=== PATIENT | female | born 1970 | race Caucasian/White ===

== ENCOUNTER → 2016-03-24 | Outpatient (CLI) | payer OTHER | LOC: WI 10:59 | PROVIDERS: ATTEND Nurse Practitioner Family | DX: Z12.31 Encounter for screening mammogram for malignant neoplasm of breast (principal) | CPT/HCPCS: 77067; G0202 ==

== ENCOUNTER 2017-12-28 17:06 | Observation (INO) | payer OTHER ==
--- NOTE | 2017-12-28 17:56 | ER Document Report ---
ED Medical Screen (RME) - General Chief Complaint: Chest Pain Stated Complaint: CHEST PAIN Time Seen by Provider: 12/28/17 17:55 Notes: 47-year-old female to the emergency department for evaluation of chest pain. Came on at rest. On the left side of her chest. [place] short of breath. Also stay thereafter rest. Went to the [place] [facility] and they sent her here. Ambulance brought patient to the ER. Received aspirin and nitro and chest pain subsided. I have greeted and performed a rapid initial assessment of this patient. A comprehensive ED assessment and evaluation of the patient, analysis of test results and completion of the medical decision making process will be conducted by additional ED providers. TRAVEL OUTSIDE OF THE [place] IN LAST 30 DAYS: No - Related Data Allergies/Adverse Reactions: No Known Allergies Allergy (Unverified 12/28/17 17:10) Past Medical History - Social History Chew tobacco use (# tins/day): No Frequency of alcohol use: Heavy Drug Abuse: None - Past Medical History Cardiac Medical History: Reports: Hx Hypertension Renal/ Medical History: Denies: Hx Peritoneal Dialysis Past Surgical History: Reports: Hx Tubal Ligation Physical Exam - Vital signs Vitals: Temp Pulse Resp BP Pulse Ox 98.4 F 84 16 148/82 H 98 12/28/17 17:16 12/28/17 17:16 12/28/17 17:16 12/28/17 17:16 12/28/17 17:16 Course - Vital Signs Vital signs: Temp Pulse Resp BP Pulse Ox 98.4 F 84 16 148/82 H 98 12/28/17 17:16 12/28/17 17:16 12/28/17 17:16 12/28/17 17:16 12/28/17 17:16 Doctor's Discharge - Discharge Referrals: DANYEL GUADALUPE FNP [Primary Care Provider] - Follow up as needed
[2017-12-28 18:09] LABS: HEMATOCRIT 31.9 % (36.0-47.0); HEMOGLOBIN 9.6 g/dL (12.0-15.5); MEAN CORPUSCULAR HEMOGLOBIN 19.2 pg (27.0-33.4); MEAN CORPUSCULAR HGB CONC 30.2 g/dL (32.0-36.0); PLATELET COUNT 223 10^3/uL (150-450); RED CELL DISTRIBUTION WIDTH 19.1 % (11.5-14.0); WHITE BLOOD COUNT 6.3 10^3/uL (4.0-10.5)
[2017-12-28 18:10] LABS: ALANINE AMINOTRANSFERASE 18 U/L (9-52); ALBUMIN 4.7 g/dL (3.5-5.0); ALKALINE PHOSPHATASE 66 U/L (38-126); ANION GAP 11 (5-19); ASPARTATE AMINO TRANSFERASE 28 U/L (14-36); BILIRUBIN,DIRECT 0.3 mg/dL (0.0-0.4); BILIRUBIN,TOTAL 0.6 mg/dL (0.2-1.3); BLOOD UREA NITROGEN 15 mg/dL (7-20); CALCIUM 9.5 mg/dL (8.4-10.2); CARBON DIOXIDE 26 mmol/L (22-30); CHLORIDE 104 mmol/L (98-107); CREATINE KINASE 64 U/L (30-135); GLUCOSE 87 mg/dL (75-110); POTASSIUM 4.2 mmol/L (3.6-5.0); TOTAL PROTEIN 8.4 g/dL (6.3-8.2)
[2017-12-28 18:11] LABS: APPEARANCE,URINE CLEAR; BILIRUBIN,URINE NEGATIVE (NEGATIVE); COLOR,URINE COLORLESS; GLUCOSE, URINE NEGATIVE (NEGATIVE); KETONES,URINE NEGATIVE (NEGATIVE); LEUKOCYTE ESTERASE,URINE NEGATIVE (NEGATIVE); NITRITE,URINE NEGATIVE (NEGATIVE); PROTEIN,URINE NEGATIVE (NEGATIVE); URINE SPECIFIC GRAVITY 1.005; UROBILINOGEN,URINE NEGATIVE mg/dL (<2.0)
[2017-12-28 18:12] LABS: MEAN CORPUSCULAR VOLUME 64 fl (80-97)
--- NOTE | 2017-12-28 18:22 | RADIOLOGY REPORT (SQ) ---
EXAM DESCRIPTION: CHEST 2 VIEWS COMPLETED DATE/TIME: 12/28/2017 6:16 pm REASON FOR STUDY: chest pain COMPARISON: None. EXAM PARAMETERS: NUMBER OF VIEWS: two views TECHNIQUE: Digital Frontal and Lateral radiographic views of the chest acquired. RADIATION DOSE: NA LIMITATIONS: none FINDINGS: LUNGS AND PLEURA: No opacities, masses or pneumothorax. No pleural effusion. MEDIASTINUM AND HILAR STRUCTURES: No masses or contour abnormalities. HEART AND VASCULAR STRUCTURES: Heart normal size. No evidence for failure. BONES: No acute findings. HARDWARE: None in the chest. OTHER: No other significant finding. IMPRESSION: NO ACUTE RADIOGRAPHIC FINDING IN THE CHEST. TECHNICAL DOCUMENTATION: JOB ID: [id number] [facility]- All Rights Reserved Reading location - IP/workstation name: [email or web address]
[2017-12-28 18:27] LABS: ABSOLUTE LYMPHOCYTES# (MANUAL) 1.8 10^3/uL (0.5-4.7); ABSOLUTE MONOCYTES # (MANUAL) 0.4 10^3/uL (0.1-1.4); BASOPHILS % (MANUAL) 0 % (0-2); EOSINOPHILS % (MANUAL) 2 % (0-6); LYMPHOCYTES % (MANUAL) 25 % (13-45); MONOCYTES % (MANUAL) 7 % (3-13); SEGMENTED NEUTROPHILS % (MAN) 63 % (42-78); TOTAL CELLS COUNTED 100
[2017-12-28 18:29] LABS: ANISOCYTOSIS 2+; HYPOCHROMASIA 2+; POLYCHROMASIA SLIGHT
[2017-12-28 18:30] LABS: PLATELET COMMENT ADEQUATE
[2017-12-28 18:39] LABS: CREATINE KINASE MB 0.53 ng/mL (<4.55)
[2017-12-28 18:40] LABS: TROPONIN I < 0.012 ng/mL
[2017-12-28] MEDS: NITROGLYCERIN 0.4 MG/TAB 25 TAB/BOTTLE SL PRN ×2 (19:33→19:46)
[2017-12-28] MEDS ORDERED: PROMETHAZINE HCL 25 MG TABLET PO PRN (19:41)
[2017-12-28] MEDS ORDERED: PROMETHAZINE HCL INJ 25 MG/1 ML VIAL IV PRN (19:41)
[2017-12-28] MEDS ORDERED: TEMAZEPAM 7.5 MG CAPSULE PO PRN (19:41)
[2017-12-28] MEDS ORDERED: ACETAMINOPHEN 325 MG TABLET PO PRN (19:41)
[2017-12-28] MEDS ORDERED: MAG HYDROX/AL HYDROX/SIMETH SUSP 30 ML UDCUP PO PRN (19:41)
--- NOTE | 2017-12-28 19:48 | ER Document Report ---
ED General - General Chief Complaint: Chest Pain Stated Complaint: CHEST PAIN Time Seen by Provider: 12/28/17 17:55 Notes: Patient is a 47-year old female with a past medical history of hypertension, tobacco abuse, who presents with chest pain rating into her left upper extremity. Patient reports that this occurred while driving, lasted for approximately 1 hour and was described mostly as a sensation of pressure or heaviness in her left chest. He states the symptoms resolved after receiving nitroglycerin by EMS but have again recurred here in the emergency department. Nothing seems to trigger her worsening symptoms. No history of similar symptoms in the past. Denies any known cardiac history. She notes that she had some mild associated shortness of breath but denies any pleuritic pain. No use of estrogen. No history of DVT or pulmonary embolus. No syncope. She was seen at the [place] and referred to the emergency department for further assessment. She has never had a stress test or cardiac catheterization. TRAVEL OUTSIDE OF THE [place] IN LAST 30 DAYS: No - Related Data Allergies/Adverse Reactions: No Known Allergies Allergy (Unverified 12/28/17 17:10) Past Medical History - General Information source: Patient - Social History Smoking Status: Current Every Day Smoker Cigarette use (# per day): Yes - 1 pack/day Chew tobacco use (# tins/day): No Smoking Education Provided: Yes - Smoking cessation counseling was provided for 4 minutes at the bedside Frequency of alcohol use: Heavy Drug Abuse: None Lives with: Spouse/Significant other Family History: Reviewed & Not Pertinent Patient has suicidal ideation: No Patient has homicidal ideation: No - Past Medical History Cardiac Medical History: Reports: Hx Hypertension Renal/ Medical History: Denies: Hx Peritoneal Dialysis Past Surgical History: Reports: Hx Tubal Ligation Review of Systems - Review of Systems Notes: Constitutional: Negative for fever. HENT: Negative for sore throat. Eyes: Negative for visual changes. Cardiovascular: Positive for chest pain. Respiratory: Positive for shortness of breath. Gastrointestinal: Negative for abdominal pain, vomiting or diarrhea. Genitourinary: Negative for dysuria. Musculoskeletal: Negative for back pain. Skin: Negative for rash. Neurological: Negative for headaches, weakness or numbness. 10 point ROS negative except as marked above and in HPI. Physical Exam - Vital signs Vitals: Temp Pulse Resp BP Pulse Ox 98.4 F 84 16 148/82 H 98 12/28/17 17:16 12/28/17 17:16 12/28/17 17:16 12/28/17 17:16 12/28/17 17:16 Interpretation: Normal Notes: PHYSICAL EXAMINATION: GENERAL: Well-appearing, well-nourished and in no acute distress. HEAD: Atraumatic, normocephalic. EYES: Pupils equal round and reactive to light, extraocular movements intact, sclera anicteric, conjunctiva are normal. ENT: nares patent, oropharynx clear without exudates. Moist mucous membranes. NECK: Normal range of motion, supple without lymphadenopathy LUNGS: Breath sounds clear to auscultation bilaterally and equal. No wheezes rales or rhonchi. HEART: Regular rate and rhythm without murmurs ABDOMEN: Soft, nontender, normoactive bowel sounds. No guarding, no rebound. No masses appreciated. EXTREMITIES: Normal range of motion, no pitting or edema. No cyanosis. NEUROLOGICAL: No focal neurological deficits. Moves all extremities spontaneously and on command. PSYCH: Normal mood, normal affect. SKIN: Warm, Dry, normal turgor, no rashes or lesions noted. Course - Re-evaluation Re-evalutation: 12/28/17 19:53 Patient presents with a clinical history moderately suspicious for the source of her chest discomfort being from ACS. She does have multiple risk factors including a long-standing tobacco abuse disorder, hypertension, and a strong family history of cardiac disease. She also reports that each time she exercises she developed chest pressure and shortness of breath and that this is been ongoing for at least one year. She did have recurrence of chest pain here in the emergency room and all of which have repeatedly resolved with nitroglycerin. She has never had a cardiac catheterization or stress test. Given her clinical history, heart score of 4, I discussed with the hospitalist for admission for cardiac stress testing and Dr. Benito has agreed - Vital Signs Vital signs: Temp Pulse Resp BP Pulse Ox 98.5 F 71 18 140/78 H 100 12/28/17 21:19 12/28/17 21:19 12/28/17 21:19 12/28/17 21:19 12/28/17 21:19 - Laboratory Result Diagrams: 12/28/17 16:30 12/28/17 16:30 Laboratory results interpreted by me: 1112/28/17 12/28/17 16:30 16:30 16:30 Hgb 9.6 L Hct 31.9 L MCV 64 L MCH 19.2 L MCHC 30.2 L RDW 19.1 H Iron 11.9 L TIBC 490 H Ferritin 4.56 L Total Protein 8.4 H Urine Blood 12/28/17 17:00 Hgb Hct MCV MCH MCHC RDW Iron TIBC Ferritin Total Protein Urine Blood SMALL H - Diagnostic Test Radiology reviewed: Image reviewed, Reports reviewed Radiology results interpreted by me: 12/28/17 19:54 Chest x-ray: No acute infiltrate or pneumothorax - EKG Interpretation by Me Additional EKG results interpreted by me: 12/28/17 19:54 Sinus rhythm. Rate 96. No ST elevations or depressions. QTC is 465. Discharge - Discharge Clinical Impression: Chest pain Qualifiers: Chest pain type: unspecified Qualified Code(s): R07.9 - Chest pain, unspecified Condition: Fair Disposition: ADMITTED OBSERVATION Admitting Provider: Hospitalist Unit Admitted: Telemetry
[2017-12-28] MEDS ORDERED: MORPHINE SULFATE 10 MG/ML INJ IV PRN (19:52)
[2017-12-28 21:29] LABS: URINE AMPHETAMINES SCREEN NEGATIVE; URINE BARBITURATES SCREEN NEGATIVE; URINE BENZODIAZEPINES SCREEN NEGATIVE; URINE COCAINE SCREEN NEGATIVE; URINE MARIJUANA (THC) SCREEN NEGATIVE; URINE METHADONE SCREEN NEGATIVE; URINE PHENCYCLIDINE SCREEN NEGATIVE
--- NOTE | 2017-12-28 22:13 | PDOC H&P ---
History of Present Illness Admission Date/PCP: 12/28/17 20:04 KURTIS WHITE Patient complains of: Chest pain History of Present Illness: JACINTO FORDE is a 47 year old female with medical history remarkable for hypertension, anxiety and PTSD. Patient tells me that around 1:40 PM she was driving from her work to her mom's house and suddenly it started with chest pressure on the left side of her chest radiated to the arm. Left arm and 3 middle fingers that were tingling, she felt the pain 8/10 intensity that lasted around 30 minutes and stopped spontaneously. Was associated with mild shortness of breath. Denies nausea, vomiting, dizziness, diaphoresis. She felt really low in energy very weak. Denies any similar symptoms in the past, denies having any stress test in the past. Denies following with any blood bank order control clerk. Tells me that this is different to her anxiety attacks and is different than when she has acid reflux. Tells me that she has chest tightness since she is a teenager, usually starts 5 minutes after initiation of exertion and lasted all the way up to 30 or 40 minutes that she decides to stop exercising and the tightness goes away, at some point he has been told that this is asthma induced by exercise. EKG is unremarkable, first set of troponins negative. Past Medical History Cardiac Medical History: Reports: Hypertension Psychiatric Medical History: Reports: General Anxiety Disorder, Post Traumatic Stress Disorder Past Surgical History Past Surgical History: Reports: Tubal Ligation, Other - Right arm benign tumor Social History Information Source: Patient Smoking Status: Current Every Day Smoker - 6-10 cigarettes a day Frequency of Alcohol Use: Occasional Hx Recreational Drug Use: No Hx Prescription Drug Abuse: No Past Social History Note: Lives with her who is at the bedside and 2 children - Advance Directive Resuscitation Status: Full Code Family History Family History: Mother 62 years old alive with a spine problems and hypertension, father is 66 years old with history of hypertension angioplasty she does not know where. One brother she does not know everything about him. Parental Family History Reviewed: Yes - As above Children Family History Reviewed: NA Sibling(s) Family History Reviewed.: NA Medication/Allergy Home Medications: Escitalopram Oxalate [Lexapro] 20 mg PO DAILY 12/28/17 Lisinopril/Hydrochlorothiazide [Lisinopril-Hctz 10-12.5 mg Tab] 1 each PO DAILY 12/28/17 Allergies/Adverse Reactions: No Known Allergies Allergy (Unverified 12/28/17 17:10) Review of Systems Review of Systems: As outlined in the HPI, all others negative Physical Exam Vital Signs: Temp Pulse Resp BP Pulse Ox 98.5 F 71 18 140/78 H 100 12/28/17 21:19 12/28/17 21:19 12/28/17 21:19 12/28/17 21:19 12/28/17 21:19 Intake & Output 12/27/17 12/28/17 12/29/17 06:59 06:59 06:59 Weight 88.5 kg Additional comments: General appearance: Well-developed, well-nourished, alert and cooperative, and appears to be in no acute distress Head: Normocephalic Eyes: PEERL, EOMI, vision is grossly intact. Ears: External auditory canal and tympanic membranes clear, hearing grossly intact. Nose: No nasal discharge. Throat: Oral cavity and pharynx normal. No inflammation, swelling, exudate or lesions. Neck: Neck supple, nontender without lymphadenopathy, masses or thyromegaly. Cardiac: Normal S1 and S2. No S3, S4 or murmurs. Rhythm is regular. There is no peripheral edema, cyanosis or pallor. Extremities are warm and well perfused. Capillary refill is less than 2 seconds. No carotid bruits. Thorax : No reproducible tenderness to palpation. Lungs: Clear to auscultation and percussion without rales, rhonchi, wheezing or diminished breath sounds. Not using accessory muscles. Abdomen: Positive bowel sounds. Soft. Nondistended, nontender. No guarding or rebound. No masses. No hepatosplenomegaly Extremities: No significant deformity or joint abnormality. No edema. Peripheral pulses intact. No varicosities. Neurological: Cranial nerves II through XII grossly intact. Strength and sensation symmetric and intact throughout. Reflexes 2+ throughout. Skin: Skin normal color, texture and turgor with no lesions or eruptions, warm and dry. Psychiatric: The mental examination revealed the patient was oriented to person , place, and time. The patient was able to demonstrate good judgment on recent , without hallucinations, abnormal affect or abnormal behaviors. Results Laboratory Results: 12/28/17 12/28/17 12/28/17 16:30 16:30 16:30 WBC 6.3 RBC 5.00 Hgb 9.6 L Hct 31.9 L MCV 64 L MCH 19.2 L MCHC 30.2 L RDW 19.1 H Plt Count 223 Total Counted 100 Seg Neuts % (Manual) 63 Lymphocytes % (Manual) 25 Atypical Lymphs % 3 Monocytes % (Manual) 7 Eosinophils % (Manual) 2 Basophils % (Manual) 0 Abs Neuts (Manual) 4.0 Abs Lymphs (Manual) 1.8 Abs Monocytes (Manual) 0.4 Absolute Eos (Manual) 0.1 Abs Basophils (Manual) 0.0 Platelet Comment ADEQUATE Polychromasia SLIGHT Hypochromasia 2+ Anisocytosis 2+ Sodium 141.0 Potassium 4.2 Chloride 104 Carbon Dioxide 26 Anion Gap 11 BUN 15 Creatinine 0.76 Est GFR ( Amer) > 60 Est GFR (Non-Af Amer) > 60 Glucose 87 Calcium 9.5 Total Bilirubin 0.6 Direct Bilirubin 0.3 AST 28 ALT 18 Alkaline Phosphatase 66 Creatine Kinase 64 CK-MB (CK-2) 0.53 Troponin I < 0.012 Total Protein 8.4 H Albumin 4.7 Urine Color Urine Appearance Urine pH Ur Specific [place] Urine Protein Urine Glucose (UA) Urine Ketones Urine Blood Urine Nitrite Urine Bilirubin Urine Urobilinogen Ur Leukocyte Esterase Urine RBC (Auto) Squamous Epi Cells Auto Urine Mucus (Auto) Urine Ascorbic Acid Urine Opiates Screen Urine Methadone Screen Ur Barbiturates Screen Ur Phencyclidine Scrn Ur Amphetamines Screen U Benzodiazepines Scrn Urine Cocaine Screen U Marijuana (THC) Screen 12/28/17 12/28/17 12/28/17 17:00 17:00 19:30 WBC RBC Hgb Hct MCV MCH MCHC RDW Plt Count Total Counted Seg Neuts % (Manual) Lymphocytes % (Manual) Atypical Lymphs % Monocytes % (Manual) Eosinophils % (Manual) Basophils % (Manual) Abs Neuts (Manual) Abs Lymphs (Manual) Abs Monocytes (Manual) Absolute Eos (Manual) Abs Basophils (Manual) Platelet Comment Polychromasia Hypochromasia Anisocytosis Sodium Potassium Chloride Carbon Dioxide Anion Gap BUN Creatinine Est GFR ( Amer) Est GFR (Non-Af Amer) Glucose Calcium Total Bilirubin Direct Bilirubin AST ALT Alkaline Phosphatase Creatine Kinase CK-MB (CK-2) Troponin I < 0.012 Total Protein Albumin Urine Color COLORLESS Urine Appearance CLEAR Urine pH 6.0 Ur Specific [place] 1.005 Urine Protein NEGATIVE Urine Glucose (UA) NEGATIVE Urine Ketones NEGATIVE Urine Blood SMALL H Urine Nitrite NEGATIVE Urine Bilirubin NEGATIVE Urine Urobilinogen NEGATIVE Ur Leukocyte Esterase NEGATIVE Urine RBC (Auto) 0 Squamous Epi Cells Auto 1 Urine Mucus (Auto) RARE Urine Ascorbic Acid NEGATIVE Urine Opiates Screen NEGATIVE Urine Methadone Screen NEGATIVE Ur Barbiturates Screen NEGATIVE Ur Phencyclidine Scrn NEGATIVE Ur Amphetamines Screen NEGATIVE U Benzodiazepines Scrn NEGATIVE Urine Cocaine Screen NEGATIVE U Marijuana (THC) Screen NEGATIVE Impressions: Chest X-Ray 12/28/17 00:00 IMPRESSION: NO ACUTE RADIOGRAPHIC FINDING IN THE CHEST. Assessment & Plan - Diagnosis (1) Chest pain Qualifiers: Chest pain type: unspecified Qualified Code(s): R07.9 - Chest pain, unspecified Is this a current diagnosis for this admission?: Yes Plan: Patient comes complaining of chest pain with typical and atypical symptomatology , never had a stress test in the past. We will go ahead and give the patient for a treadmill stress test. Telemetry monitoring. Cardiac enzymes total of x3 , so far to negative with unremarkable EKG. (2) Anxiety Is this a current diagnosis for this admission?: Yes Plan: Anxiety and PTSD on escitalopram (3) Hypertension Qualifiers: Hypertension type: essential hypertension Qualified Code(s): I10 - Essential (primary) hypertension Is this a current diagnosis for this admission?: Yes Plan: Continue with her lisinopril and HCTZ. (4) DVT prophylaxis Is this a current diagnosis for this admission?: Yes Plan: Lovenox (5) Anemia Is this a current diagnosis for this admission?: Yes Plan: Unknown if is acute on chronic, hemoglobin is 9.6 and hematocrit 31, will send anemia workup. - Time Time Spent: 50 to 70 Minutes
[2017-12-28 22:38] LABS: ABSOLUTE RETICS # 0.113 10^6/uL (0.028-0.122); RETICULOCYTE COUNT (AUTO) 2.32 % (0.66-2.85)
[2017-12-28 22:45] LABS: IRON(TIBC) 11.9 ug/dL (37-170)
[2017-12-28 23:23] LABS: FERRITIN 4.56 ng/mL (6.2-137.0)
[2017-12-28 23:53] LABS: FOLATE 4.31 ng/mL (>2.76)
--- NOTE | 2017-12-29 00:19 | EKG REPORT ---
SEVERITY:- BORDERLINE ECG - SINUS RHYTHM PROBABLE LEFT ATRIAL ABNORMALITY BORDERLINE LEFT AXIS DEVIATION : Confirmed by: Willard Ro 29-Dec-2017 00:18:28
[2017-12-29 05:31] LABS: CHOLESTEROL 162.02 mg/dL (0-200); TRIGLYCERIDES 76 mg/dL (<150)
[2017-12-29 05:42] LABS: DIRECT LDL 98 mg/dL (<100)
[2017-12-29 09:41] VITALS: BP 120/82
[2017-12-29] MEDS ORDERED: ESCITALOPRAM OXALATE 10 MG TABLET PO SCH (10:00)
[2017-12-29] MEDS ORDERED: ENOXAPARIN SODIUM INJ 40 MG/0.4 ML DISP.SYRIN SUBCUT SCH (10:00)
[2017-12-29] MEDS ORDERED: LISINOPRIL 10 MG TABLET PO SCH (10:00)
[2017-12-29] MEDS ORDERED: HYDROCHLOROTHIAZIDE 12.5 MG TABLET PO SCH (10:00)
--- NOTE | 2017-12-30 12:56 | DISCHARGE SUMMARY E ---
Discharge Summary NAME: JACINTO FORDE : 1970 AGE: 47Y ADMITTED: 12/28/2017 Discharged: 12/29/2017 CODE STATUS: Full code. PRIMARY CARE PROVIDER: KURTIS Pack. DISCHARGE DIAGNOSES: 1. Chest pain. 2. Iron deficiency anemia, possibly related to menorrhagia. 3. Significant general anxiety disorder with panic at times. 4. Hypertension. 5. Post-traumatic stress disorder. DISCHARGE MEDICATIONS: 1. Lexapro 20 mg p.o. daily. 2. Lisinopril/hydrochlorothiazide 10/12.5 mg 1 tablet p.o. daily. ACTIVITY: As tolerated. DIET: Heart healthy, iron rich. CONDITION: Good. DIAGNOSTICS: Lab values are as follows - Hematology obtained on 12/28/2017; WBC 6.3, hemoglobin is 9.6, hematocrit is 31.9, platelet count is 226,000. Chemistry obtained on 12/29/2017; sodium is 141, potassium 4.2, chloride 104, carbon dioxide 26, BUN 11, creatinine is 0.76, glucose 87, A1c is 5, calcium is 9.5, magnesium 2.0. Iron is 11.9, TIBC is 490, percent saturation is 2, ferritin is 4.56, bilirubin is 0.6, AST 28, ALT 18, alk-phos 56. CK is 64, CK-MB is 0.53, troponin is 0.012. Total protein 8.4, albumin 4.7. Triglycerides are 76, cholesterol 162, LDL 98, VLDL is 15, HDL is 65. B12 is 300, folate is 431. Toxicology obtained on 12/28/2017 is negative. Urinalysis obtained on 12/28/2017; color appearance clear, pH 6.0, specific gravity is 1.005, protein negative, glucose negative, ketones negative, occult blood small, nitrite negative, BILI negative, urobilinogen is negative, leukocyte esterase is negative, RBC 0. Chest x-ray obtained on 12/28/2017 reveals no acute radiographic finding of the chest. EKG obtained on 12/29/2017 revealed sinus rhythm. PHYSICAL EXAMINATION: GENERAL: On examination the patient is a well-developed, well-nourished, 47-year-old who is awake, alert, and oriented to person, place, time, and situation. She is verbal, conversational. She does not appear to be distressed. VITAL SIGNS: Temperature is 98.2, pulse 73, respirations 19, blood pressure is 120/82, oxygen saturation is 100% on room air. SKIN: Warm and dry. No rash. She is not diaphoretic. HEENT: Pupils equal, round, reactive to light and accommodation. Conjunctivae pink. No evidence of JVP. CARDIOVASCULAR SYSTEM: Heart is regular. There is no murmur or rub. CHEST: Clear, symmetrical, unlabored. ABDOMEN: Soft, nontender, nondistended. BACK: No CVA tenderness, sacral edema. EXTREMITIES: No clubbing, cyanosis, or edema. PSYCHIATRIC: Appropriate affect and pleasant mood. HISTORY OF PRESENT ILLNESS: The patient is a 47-year-old female with a past medical history that includes hypertension and anxiety. The patient presented to the emergency department with a chief complaint of chest pain. The patient stated that her pain began around 140 when she was driving home from work. The patient stated that she had chest pressure on the left side, which radiated to her arm, and also stated the 3 middle fingers that were tingling. The pain described the pain as an 8 out of 10 in intensity and it lasted around 30 minutes and stopped spontaneously. It was associated with mild shortness of breath. The patient denies any nausea, vomiting, diarrhea. No diaphoresis. The patient felt as though she was very weak. The patient denied any symptoms in the past. Has not had a stress test and has not seen a mud trucker. The patient stated that she does have anxiety attacks as well as acid reflux, but this felt different. The patient stated that she has had chest tightness since she was a teenager, which usually starts 5 minutes before the initiation of exertion and lasts all the way up to 30 or 40 minutes after she stops exercising and then it goes away. The patient has been told that she had restrictive lung disease at some point in time that could be induced by exercise. The patient's EKG was unremarkable, troponins negative, but she was referred to the hospitalist for admission and management. HOSPITAL COURSE: The patient was admitted to continuous telemetry and serial cardiac enzymes were obtained, all of these were nonsuggestive. The patient's EKG did not have any worrisome findings. The patient had no evidence on the media monitor. Lipid panel was found to be unremarkable. The only thing out of character on the patient's chemistries revealed that she does have an iron deficiency anemia which the patient appears to have some element of menorrhagia. The patient will be supplemented iron and encouraged to eat an iron rich diet and will followup with her primary care provider. The patient will also follow up with her primary care provider to schedule outpatient cardiac stress test and the patient and the family are in agreeance with this plan. DISCHARGE PLAN: 1. The patient advised to follow up with her primary care provider within 1 to 2 weeks for hospital followup. 2. The patient does need outpatient stress test. TIME SPENT: On this discharge including assessment and plan, physical examination, patient education, review of records is 25 minutes. DICTATING PHYSICIAN: ARMAND SKELTON NP [id number] PHY#: [id number] ID: [id number] JOB#: [id number] ACCT: [id number] cc:IMELDA MIGUEL M.D. > MTDJose
[2017-12-31 16:04] LABS: PATH REVIEW PATHOLOGIST REVIEWED
== END 2017-12-29 10:50 | disposition home or self-care (01) ==
LOC: ER 17:06 → EH 20:04 → 5 21:07
PROVIDERS: ADMIT Internal Medicine; ATTEND Internal Medicine
PROC: HZ31ZZZ Individual Counseling for Substance Abuse Treatment, Behavioral (ICD-10-PCS; principal; 2017-12-28)
DX: R07.89 Other chest pain (principal); D50.9 Iron deficiency anemia, unspecified; F41.1 Generalized anxiety disorder; F41.0 Panic disorder [episodic paroxysmal anxiety]; I10 Essential (primary) hypertension; F43.10 Post-traumatic stress disorder, unspecified; F17.210 Nicotine dependence, cigarettes, uncomplicated; R20.2 Paresthesia of skin; Z98.51 Tubal ligation status; Z82.49 Family history of ischemic heart disease and other diseases of the circulatory system; Z79.899 Other long term (current) drug therapy
CPT/HCPCS: 93005; 99406; 99285; 36415 ×2; 82553; 82607; 82550; 82728; 82746; 83540; 83550; 83735; 85025; 85045; 80053; 81001; 84484 ×2; 80307; 83036; 80061; 71046; 93010; G0378 ×3

== ENCOUNTER 2020-01-27 08:49 | Emergency (ER) | payer OTHER ==
--- NOTE | 2020-01-27 10:19 | RADIOLOGY REPORT (SQ) ---
EXAM DESCRIPTION: CT HEAD WITHOUT IMAGES COMPLETED DATE/TIME: 01/27/2020 10:05 am REASON FOR STUDY: new onset dizziness/vertigo COMPARISON: None. TECHNIQUE: Axial images acquired through the brain without intravenous contrast. Images reviewed wi th bone, brain and subdural windows. Additional sagittal and coronal reconstructions were generated. Images stored on PACS. All CT scanners at this facility use dose modulation, iterative reconstruction, and/or weight based d osing when appropriate to reduce radiation dose to as low as reasonably achievable (ALARA). [facility]: Dose Right [facility]: CareDose [facility]: Dose Right [facility]: Teradose 4D [facility]: Smart ClearStream RADIATION DOSE: CT Rad equipment meets quality standard of care and radiation dose reduction techniq ues were employed. CTDIvol: 53.2 mGy. DLP: 1097 mGy-cm. mGy. LIMITATIONS: None. FINDINGS: VENTRICLES: Normal size and contour. CEREBRUM: No masses. No hemorrhage. No midline shift. No evidence for acute infarction. Normal gra y/white matter differentiation. No areas of low density in the white matter. CEREBELLUM: No masses. No hemorrhage. No alteration of density. No evidence for acute infarction. EXTRAAXIAL SPACES: No fluid collections. No masses. ORBITS AND GLOBE: No intra- or extraconal masses. Normal contour of globe without masses. CALVARIUM: No fracture. PARANASAL SINUSES: No fluid or mucosal thickening. SOFT TISSUES: No mass or hematoma. OTHER: No other significant finding. IMPRESSION: NORMAL BRAIN CT WITHOUT CONTRAST. EVIDENCE OF ACUTE STROKE: NO. COMMENT: Quality ID # [id number]: Final reports with documentation of one or more dose reduction techniques (e.g., Automated exposure control, adjustment of the mA and/or kV according to patient size, use of iterative reconstruction technique) TECHNICAL DOCUMENTATION: JOB ID: [id number] 2010 [employer]- All Rights Reserved Reading location - IP/workstation name: [email or web address]
--- NOTE | 2020-01-27 11:30 | ER Document Report ---
ED Dizziness/Weakness - General Chief Complaint: Dizziness Stated Complaint: HARD TO STAND Primary Care Provider: JUDITH GARCIA DO [NO LOCAL MD] - Follow up as needed [facility] [[facility]] - Follow up as needed TRAVEL OUTSIDE OF THE [place] IN LAST 30 DAYS: No - HPI Notes: Chief Complaint: Dizziness Historian: History obtained from patient HPI: This is a 49-year-old female presents to the ED complaining of dizziness. She has had intermittent brief episodes for 5 months when she goes to stand up. When patient rolled over in bed this morning she had similar spinning sensation that was more severe than usual and has been ongoing today. Patient says if she moves her head quickly ROS: Constitutional: no fevers. HEENT: no CLARKE, sore throat, or vision changes. CV: no chest pain or palpitations. Resp: no cough or SOB. GI: no abdominal pain, or n/v/d. : no dysuria, hematuria, or incont. MSK: no back pain, no joint swelling/redness. Skin: no rashes or itching. Neuro: no seizures, weakness, numbness, or confusion. Hematological: no ecchymosis or easy bleeding. Endocrine: no polyuria/polydipsia, no heat/cold intolerance. Psych: no SI/HI, AH/VH or memory loss. PMHx: Reviewed and agree as charted by RN. PSHx: Reviewed and agree as charted by RN. SOCHx: Reviewed and agree as charted by RN. FHX: No significant familial comorbid conditions directly related to patient co mplaint Current Medications: Reviewed and agree with the patient medications as charted by the RN. Allergies: Reviewed and agree with the listed allergies as charted by the RN Physical Exam: Vitals: Reviewed in chart as documented by RN. General: Alert and in NAD. Head: Normocephalic; atraumatic Eyes: PERRLA, Conjunctivae clear sclerae non-icteric bilat ENT: no soft palate swelling or uvular deviation Neck: trachea midline, no unilateral swelling/tenderness/lymphadenopathy CV: RRR, no M/R/G; symmetric distal pulses Resp: respirations even and unlabored, CTA bilat. GI: abd soft and nondistended. NTTP. normal BS. no masses/HSM. no CVAT bilat MSK: FROM of all extremities. No midline CTL spine tenderness/deformity Skin: warm, moist, good turgor. no rash/lesions Neuro: Alert and oriented X 4. following CN 2-12 intact. no unilateral weakness/numbness. neg romberg mild horizontal unidirectional nystagmus w/ EOM. test of skew negative bilat. Psych: No SI/HI or AH/VH. ED Results: Medical Decision-Making: Medical Decision-making/Differential Diagnosis: Consider various etiologies including but not limited to Anemia, Cardiac dysrrhythmia, Cerebrovascular accident, Dizziness, Hypovolemia, Seizure, Syncope, Transient ischemic attack, Acute intracranial process, infection, metabolic derangement, pulmonary/pleural-based processes, ect plan - basic labs, ECG, CT head. imaging reviewed- no acute CVA noted on CT . labs reviewed and reassuring. ECG- nsr, rate 79, LAD, pr 152, qtc- 416. no rafia/std. unchanged from previous. discussed w/ Dr Lozano, suspect there is likely a peripheral cause to her vertigo. She has no other neuro deficits. no hx of cva. minimal risk factors for CVA. pt has horizontal unidirectional nystagmus w/ EOM and test of skew was neg to bilat eyes. We don't feel MRI brain is indicated at this time due to concern for CVA is very low. PT given meclizine in ED. Will recheck after 45 minutes. If no improvement will consider valium and/or steroids and then d/c home w/ scripts. pcp f/u this week for recheck. strict return factors discussed. This course of action was discussed with the patient and/or family. They were amenable to this, verbalized understanding, and were without further questions. - Related Data Allergies/Adverse Reactions: No Known Allergies Allergy (Verified 01/27/20 09:16) Past Medical History - Social History Smoking Status: Former Smoker Chew tobacco use (# tins/day): No Frequency of alcohol use: Occasional Drug Abuse: None Family History: Reviewed & Not Pertinent Patient has homicidal ideation: No - Past Medical History Cardiac Medical History: Reports: Hx Hypertension Renal/ Medical History: Denies: Hx Peritoneal Dialysis Psychiatric Medical History: Reports: Hx Post Traumatic Stress Disorder Past Surgical History: Reports: Hx Tubal Ligation, Other - Right arm benign tumor - Immunizations Hx Diphtheria, Pertussis, Tetanus Vaccination: Yes Hx Pneumococcal Vaccination: 02/12/09 Physical Exam - Vital signs Vitals: Temp Pulse Resp BP Pulse Ox 98.1 F 84 18 155/92 H 100 01/27/20 09:12 01/27/20 09:12 01/27/20 09:12 01/27/20 09:12 01/27/20 09:12 Course - Re-evaluation Re-evalutation: 01/27/20 12:[address] head negative. EKG also reviewed and unchanged from prior. Will treat symptomatically for her vertigo symptoms 01/27/20 14:22 pt c/o no relief w/ meclizine. will give pt a dose of prednisone and valium po in the ED. pt would like to d/c home at this time. will give script for a few days of valium an steroids. pcp f/u in 2-3 days. return factors discussed. pt agrees w/ plan of care. - Vital Signs Vital signs: Temp Pulse Resp BP Pulse Ox 98.1 F 84 12 146/89 H 100 01/27/20 09:12 01/27/20 09:12 01/27/20 12:00 01/27/20 12:00 01/27/20 12:00 - Laboratory Results Result Diagrams: 01/27/20 11:43 01/27/20 11:43 Laboratory Results Interpreted: 01/27/20 01/27/20 01/27/20 11:43 11:43 12:41 WBC 3.1 L MCH 33.8 H RDW 18.1 H Plt Count 140 L Sodium 131.8 L Urine Blood SMALL H Critical Laboratory Results Reviewed: No Critical Results - Radiology Results Critical Radiology Results Reviewed: No Critical Results - EKG Interpretation by Ut EKG shows normal: Sinus rhythm Rate: Normal Rhythm: NSR [place]/QRS: Left axis deviation Voltage: No: Increased voltage, Consistent with LVH, Consistent with RVH, Decreased voltage, Throughout, Limb leads P Waves: LAE Heart block present: No: 1st Degree, Mobitz 1, Mobitz 2, CHB (3rd degree block) When compared to previous EKG there are: No significant change Discharge - Discharge Clinical Impression: Vertigo Condition: Stable Disposition: HOME, SELF-CARE Instructions: Vertigo ([facility]) Additional Instructions: take medications as prescribed. drink plenty of fluids to stay hydrated. follow up with your primary doctor for a recheck in the next couple days. return to the ER if your condition worsens or if you have any other concerning signs or symptoms. no driving while taking valium as it can make you drowsy. Prescriptions: Diazepam [Valium 2 mg Tablet] 2 mg PO Q6HP PRN #15 tablet PRN Reason: Prednisone [Deltasone 20 mg Tablet] 20 mg PO BID #6 tablet Referrals: JUDITH GARCIA DO [NO LOCAL MD] - Follow up as needed [facility] [[facility]] - Follow up as needed
[2020-01-27 11:58] LABS: ABSOLUTE EOSINOPHILS # (AUTO) 0.1 10^3/uL (0.0-0.6); ABSOLUTE LYMPHOCYTES (AUTO) 0.8 10^3/uL (0.5-4.7); ABSOLUTE MONOCYTES (AUTO) 0.2 10^3/uL (0.1-1.4); BASOPHILS % (AUTO) 0.7 % (0-2); EOSINOPHILS % (AUTO) 2.2 % (0-6); HEMATOCRIT 37.6 % (36.0-47.0); HEMOGLOBIN 13.2 g/dL (12.0-15.5); MEAN CORPUSCULAR HEMOGLOBIN 33.8 pg (27.0-33.4); MEAN CORPUSCULAR HGB CONC 35.2 g/dL (32.0-36.0); MEAN CORPUSCULAR VOLUME 96 fl (80-97); PLATELET COUNT 140 10^3/uL (150-450); RED BLOOD COUNT 3.92 10^6/uL (3.72-5.28); RED CELL DISTRIBUTION WIDTH 18.1 % (11.5-14.0); SEGMENTED NEUTROPHILS % (AUTO) 65.1 % (42-78); TOTAL CELLS COUNTED % (AUTO) 100 %; WHITE BLOOD COUNT 3.1 10^3/uL (4.0-10.5)
[2020-01-27 12:30] LABS: ALBUMIN 3.9 g/dL (3.5-5.0); ALKALINE PHOSPHATASE 54 U/L (38-126); ANION GAP 6 (5-19); ASPARTATE AMINO TRANSFERASE 29 U/L (14-36); BILIRUBIN,DIRECT 0.1 mg/dL (0.0-0.4); BILIRUBIN,TOTAL 0.7 mg/dL (0.2-1.3); BLOOD UREA NITROGEN 14 mg/dL (7-20); CALCIUM 9.1 mg/dL (8.4-10.2); CARBON DIOXIDE 26 mmol/L (22-30); CHLORIDE 100 mmol/L (98-107); GLUCOSE 89 mg/dL (75-110); POTASSIUM 4.3 mmol/L (3.6-5.0)
[2020-01-27] MEDS ORDERED: MECLIZINE HCL 25 MG TABLET PO ONE (12:42)
[2020-01-27 13:14] LABS: APPEARANCE,URINE CLEAR; BILIRUBIN,URINE NEGATIVE (NEGATIVE); COLOR,URINE STRAW; GLUCOSE, URINE NEGATIVE (NEGATIVE); KETONES,URINE NEGATIVE (NEGATIVE); LEUKOCYTE ESTERASE,URINE NEGATIVE (NEGATIVE); NITRITE,URINE NEGATIVE (NEGATIVE); PROTEIN,URINE NEGATIVE (NEGATIVE); URINE SPECIFIC GRAVITY 1.006; UROBILINOGEN,URINE NEGATIVE mg/dL (<2.0)
[2020-01-27] MEDS ORDERED: DIAZEPAM 5 MG TABLET PO ONE (14:11)
[2020-01-27] MEDS ORDERED: PREDNISONE 20 MG TABLET PO ONE (14:11)
--- NOTE | 2020-01-27 14:21 | EKG REPORT ---
SEVERITY:- BORDERLINE ECG - SINUS RHYTHM PROBABLE LEFT ATRIAL ABNORMALITY BORDERLINE LEFT AXIS DEVIATION : Confirmed by: Peyton Tolentino MD 27-Jan-2020 14:20:20
[2020-01-27 15:12] VITALS: BP 128/70
== END 2020-01-27 15:12 | disposition home or self-care (01) ==
LOC: ER 08:49
DX: R42 Dizziness and giddiness (principal); I10 Essential (primary) hypertension
CPT/HCPCS: 93005; 99285; 36415; 85025; 80053; 81001; 84484; 70450; 93010; J7512

== ENCOUNTER 2020-03-09 14:36 | Emergency (ER) | payer OTHER ==
[2020-03-09] MEDS ORDERED: NORMAL SALINE 1000 ML 1,000 ML IV ONE (15:23)
--- NOTE | 2020-03-09 15:24 | ER Document Report ---
ED Medical Screen (RME) - General Chief Complaint: Vaginal Bleeding Stated Complaint: WEAKNESS,HEAVY VAGINAL BLEEDING Time Seen by Provider: 03/09/20 15:12 Primary Care Provider: NIKKI,BRANDON [Primary Care Provider] - Follow up as needed TRAVEL OUTSIDE OF THE [place] IN LAST 30 DAYS: No - HPI Notes: 03/09/20 15:22 49-year-old perimenopausal female with a history of anemia presents to the emergency room today for vaginal bleeding that started January 12 and is still currently going. Patient states that by 5 PM for the last 3 days, she is going through an ultra tampon every 1/2 hour, at 10 PM she has to get up every 2-3 hours to change an ultra tampon. Reports large clots coming out. Patient states she is also experiencing some chest tightness, shortness of breath, fatigue. Patient states that she is getting iron transfusion, her last iron transfusion was in December 2019. Patient has been waiting to hear back from the [facility] for possible ablation. Denies any fevers chills, nausea, vomiting, diarrhea. Denies any vaginal pain, pelvic pain, low back pain I have greeted and performed a rapid initial assessment of this patient. A comprehensive ED assessment and evaluation of the patient, analysis of test results and completion of the medical decision making process will be conducted by additional ED providers. PHYSICAL EXAMINATION: GENERAL: Well-appearing, well-nourished and in no acute distress. CV: Sinus tachycardia LUNGS: No respiratory distress Musculoskeletal: Normal range of motion NEUROLOGICAL: Normal speech, normal gait. SKIN: Warm, Dry, normal turgor, no rashes or lesions noted. The patient was evaluated during a global COVID-19 pandemic and that diagnosis was suspected/considered upon their initial presentation. Their evaluation, treatment and testing was consistent with current guidelines for patients who present with complaints or symptoms and may be related to COVID-19. 03/09/20 15:24 - Related Data Allergies/Adverse Reactions: No Known Allergies Allergy (Verified 01/27/20 09:16) Past Medical History - Social History Frequency of alcohol use: Occasional - Past Medical History Cardiac Medical History: Reports: Hx Hypertension Renal/ Medical History: Denies: Hx Peritoneal Dialysis GI Medical History: Reports: Hx Gastroesophageal Reflux Disease Psychiatric Medical History: Reports: Hx Post Traumatic Stress Disorder Past Surgical History: Reports: Hx Tubal Ligation, Other - Right arm benign tumor - Immunizations Hx Diphtheria, Pertussis, Tetanus Vaccination: Yes Physical Exam - Vital signs Vitals: Temp Pulse Resp BP Pulse Ox 98.4 F 113 H 20 141/96 H 100 03/09/20 14:49 03/09/20 14:49 03/09/20 14:49 03/09/20 14:49 03/09/20 14:49 Course - Vital Signs Vital signs: Temp Pulse Resp BP Pulse Ox 98.4 F 113 H 20 141/96 H 100 03/09/20 14:49 03/09/20 14:49 03/09/20 14:49 03/09/20 14:49 03/09/20 14:49 Doctor's Discharge - Discharge Referrals: [facility] [[facility]] - Follow up as needed
[2020-03-09 15:52] LABS: ABSOLUTE EOSINOPHILS # (AUTO) 0.1 10^3/uL (0.0-0.6); ABSOLUTE MONOCYTES (AUTO) 0.3 10^3/uL (0.1-1.4); ABSOLUTE NEUT (AUTO) 4.1 10^3/uL (1.7-8.2); BASOPHILS % (AUTO) 0.4 % (0-2); EOSINOPHILS % (AUTO) 1.8 % (0-6); HEMATOCRIT 31.1 % (36.0-47.0); LYMPHOCYTES % (AUTO) 18.4 % (13-45); MEAN CORPUSCULAR HEMOGLOBIN 35.8 pg (27.0-33.4); MEAN CORPUSCULAR HGB CONC 35.4 g/dL (32.0-36.0); MEAN CORPUSCULAR VOLUME 101 fl (80-97); MONOCYTES % (AUTO) 5.9 % (3-13); PLATELET COUNT 211 10^3/uL (150-450); RED BLOOD COUNT 3.08 10^6/uL (3.72-5.28); RED CELL DISTRIBUTION WIDTH 14.7 % (11.5-14.0); SEGMENTED NEUTROPHILS % (AUTO) 73.5 % (42-78); TOTAL CELLS COUNTED % (AUTO) 100 %; WHITE BLOOD COUNT 5.6 10^3/uL (4.0-10.5)
[2020-03-09 16:08] LABS: APPEARANCE,URINE CLEAR; BILIRUBIN,URINE NEGATIVE (NEGATIVE); COLOR,URINE YELLOW; GLUCOSE, URINE NEGATIVE (NEGATIVE); KETONES,URINE NEGATIVE (NEGATIVE); LEUKOCYTE ESTERASE,URINE NEGATIVE (NEGATIVE); NITRITE,URINE NEGATIVE (NEGATIVE); PROTEIN,URINE NEGATIVE (NEGATIVE); URINE SPECIFIC GRAVITY 1.013; UROBILINOGEN,URINE NEGATIVE mg/dL (<2.0)
[2020-03-09 16:09] LABS: ALBUMIN 4.2 g/dL (3.5-5.0); ALKALINE PHOSPHATASE 65 U/L (38-126); ANION GAP 6 (5-19); ASPARTATE AMINO TRANSFERASE 29 U/L (14-36); BILIRUBIN,DIRECT 0.2 mg/dL (0.0-0.4); BILIRUBIN,TOTAL 0.7 mg/dL (0.2-1.3); BLOOD UREA NITROGEN 9 mg/dL (7-20); CALCIUM 9.2 mg/dL (8.4-10.2); CARBON DIOXIDE 29 mmol/L (22-30); CHLORIDE 96 mmol/L (98-107); GLUCOSE 108 mg/dL (75-110); POTASSIUM 3.5 mmol/L (3.6-5.0); TOTAL PROTEIN 7.1 g/dL (6.3-8.2)
--- NOTE | 2020-03-09 16:27 | RADIOLOGY REPORT (SQ) ---
EXAM DESCRIPTION: CHEST SINGLE VIEW IMAGES COMPLETED DATE/TIME: 03/09/2020 4:01 pm REASON FOR STUDY: sob and chest tightness COMPARISON: 01/07/2018. EXAM PARAMETERS: NUMBER OF VIEWS: One view. TECHNIQUE: Single frontal radiographic view of the chest acquired. RADIATION DOSE: NA LIMITATIONS: None. FINDINGS: LUNGS AND PLEURA: No opacities, masses or pneumothorax. No pleural effusion. MEDIASTINUM AND HILAR STRUCTURES: There is mild fullness of the left hilum, unchanged. HEART AND VASCULAR STRUCTURES: Heart normal in size. Normal vasculature. BONES: No acute findings. HARDWARE: None in the chest. OTHER: No other significant finding. IMPRESSION: NO ACUTE RADIOGRAPHIC FINDING IN THE CHEST. MILD FULLNESS OF THE LEFT HILUM IS UNCHANGE D SINCE DECEMBER 2017. MAY BE DUE TO PROMINENT PULMONARY VESSELS ALTHOUGH CANNOT EXCLUDE MILD ADENOP ATHY. TECHNICAL DOCUMENTATION: JOB ID: [id number] 2010 [employer]- All Rights Reserved Reading location - IP/workstation name: [email or web address]
--- NOTE | 2020-03-09 16:29 | RADIOLOGY REPORT (SQ) ---
EXAM DESCRIPTION: U/S NON-OB PELVIS TV W/O DOP IMAGES COMPLETED DATE/TIME: 03/09/2020 4:03 pm REASON FOR STUDY: heavy vaginal bleeding, 1 tampon q 30 min x 3 nigh COMPARISON: None. TECHNIQUE: Dynamic and static grayscale images acquired of the pelvis via transvaginal approach and recorded on PACS. Additional selected color Doppler and spectral images recorded. LIMITATIONS: None. FINDINGS: UTERUS: Bicornuate uterus. Small hypoechoic areas measuring approximately 1 cm. ENDOMETRIAL STRIPE: No focal or generalized thickening. No masses. CERVIX: No nabothian cysts. RIGHT OVARY AND DOPPLER: Normal size. 2 cm cyst. No worrisome masses. Normal arterial vascular flow without evidence for torsion. LEFT OVARY AND DOPPLER: Ovary not visualized due to poor acoustic window. FREE FLUID: None noted. OTHER: No other significant finding. MEASUREMENTS: UTERUS: 5.0 x 6.2 x 8.7 cm. ENDOMETRIAL STRIPE: 12 mm. RIGHT OVARY: 1.8 x 2.8 x 3.8 cm. LEFT OVARY: Not visualized. IMPRESSION: 1. BICORNUATE UTERUS. PROBABLE SMALL UTERINE FIBROIDS. 2. SIMPLE CYST IN THE RIGHT OVARY. LEFT OVARY NOT VISUALIZED. TECHNICAL DOCUMENTATION: JOB ID: [id number] 2010 [employer]- All Rights Reserved Rev-06/29 Reading location - IP/workstation name: [email or web address]
--- NOTE | 2020-03-09 18:49 | EKG REPORT ---
SEVERITY:- OTHERWISE NORMAL ECG - SINUS RHYTHM BORDERLINE LEFT AXIS DEVIATION : Confirmed by: George Fong MD 09-Mar-2020 18:48:27
--- NOTE | 2020-03-09 19:23 | ER Document Report ---
ED General - General Chief Complaint: Vaginal Bleeding Stated Complaint: WEAKNESS,HEAVY VAGINAL BLEEDING Time Seen by Provider: 03/09/20 15:12 Primary Care Provider: NIKKI,BRANDON [Primary Care Provider] - Follow up as needed TRAVEL OUTSIDE OF THE [place] IN LAST 30 DAYS: No - HPI Patient complains to provider of: Patient is a 49-year-old female who presents to the emergency department fo Notes: Patient is a 49-year-old female presents emergency department for evaluation. She first states that she has had vaginal bleeding since January 12. She states she is changing a tampon every half an hour. She states she has had a history of heavy vaginal bleeding with anemia, requiring iron transfusions. Last iron transfusion was back in December. She states she has been referred on for possible ablation versus hysterectomy, still waiting to hear back. She also states he has been having some chest burning and tightness with exertion. This has been ongoing for the last few weeks. She assumed it was secondary to her anemia. She denies any fevers or chills. No chest tightness at this time. She denies any coughing. No vomiting. No diarrhea. She denies any urinary symptoms. - Related Data Allergies/Adverse Reactions: No Known Allergies Allergy (Verified 01/27/20 09:16) Past Medical History - General Information source: Patient - Social History Smoking Status: Former Smoker Frequency of alcohol use: Occasional Family History: Reviewed & Not Pertinent - Past Medical History Cardiac Medical History: Reports: Hx Hypertension Renal/ Medical History: Denies: Hx Peritoneal Dialysis GI Medical History: Reports: Hx Gastroesophageal Reflux Disease Psychiatric Medical History: Reports: Hx Post Traumatic Stress Disorder Past Surgical History: Reports: Hx Tubal Ligation, Other - Right arm benign tumor - Immunizations Hx Diphtheria, Pertussis, Tetanus Vaccination: Yes Hx Pneumococcal Vaccination: 02/12/09 Review of Systems - Review of Systems Constitutional: No symptoms reported EENT: See HPI Cardiovascular: See HPI Respiratory: See HPI Gastrointestinal: No symptoms reported Genitourinary: No symptoms reported Female Genitourinary: See HPI Musculoskeletal: No symptoms reported Skin: No symptoms reported Neurological/Psychological: No symptoms reported Physical Exam - Vital signs Vitals: Temp Pulse Resp BP Pulse Ox 98.4 F 113 H 20 141/96 H 100 03/09/20 14:49 03/09/20 14:49 03/09/20 14:49 03/09/20 14:49 03/09/20 14:49 - Notes Notes: Vital signs reviewed, please refer to chart. Head is normocephalic, atraumatic. Pupils equal round, reactive to light. Neck is supple without meningismus. Heart is regular rate and rhythm. Lungs are clear to auscultation bilaterally. Abdomen is soft, nontender, normoactive bowel sounds throughout. Extremities without cyanosis, clubbing. Posterior calves are nontender. Peripheral pulses are equal. Skin is warm and dry. Patient is awake, alert, neurological exam is nonfocal. Course - Re-evaluation Re-evalutation: 03/09/20 19:21 Patient presents emergency department for evaluation. She complains of heavy vaginal bleeding. Despite this reported bleeding, the patient's hemoglobin is 11. Her chest x-ray and troponin are unremarkable. She does have a history of acid reflux, I told her sometimes people feel wheezy and shortness of breath with chest tightness secondary to acid reflux. She has a normal chest x-ray. She has an undetectable troponin. She had a negative stress test 2 years ago. She has no premature family history of coronary artery disease. At this point I feel comfortable with the patient being discharged. She is to follow-up closely with her primary care provider and [facility]. She is to return to the emergency department with worsening or new concerning symptoms of any sort. - Vital Signs Vital signs: Temp Pulse Resp BP Pulse Ox 98.4 F 113 H 20 126/80 H 100 03/09/20 14:49 03/09/20 14:49 03/09/20 14:49 03/09/20 17:32 03/09/20 14:49 - Laboratory Results Result Diagrams: 03/09/20 15:30 03/09/20 15:30 Laboratory Results Interpreted: 03/09/20 03/09/20 03/09/20 15:30 15:30 15:30 RBC 3.08 L Hgb 11.0 L Hct 31.1 L MCV 101 H MCH 35.8 H RDW 14.7 H Sodium 131.3 L Potassium 3.5 L Chloride 96 L Urine Blood SMALL H Critical Laboratory Results Reviewed: No Critical Results - Radiology Results Radiology Results Interpreted: 03/09/20 19:22 Transvaginal US 03/09/20 15:19 IMPRESSION: 1. BICORNUATE UTERUS. PROBABLE SMALL UTERINE FIBROIDS. 2. SIMPLE CYST IN THE RIGHT OVARY. LEFT OVARY NOT VISUALIZED. Chest X-Ray 03/09/20 15:20 IMPRESSION: NO ACUTE RADIOGRAPHIC FINDING IN THE CHEST. MILD FULLNESS OF THE LEFT HILUM IS UNCHANGED SINCE DECEMBER 2017. MAY BE DUE TO PROMINENT PULMONARY VESSELS ALTHOUGH CANNOT EXCLUDE MILD ADENOPATHY. Critical Radiology Results Reviewed: No Critical Results - EKG Interpretation by Me Additional EKG results interpreted by me: 03/09/20 19:23 Sinus mechanism with rate of 93 bpm. Normal intervals. Mild left axis deviation. No acute ST changes concerning for ischemia or infarction. No old studies immediately available for comparison. Discharge - Discharge Clinical Impression: Abnormal vaginal bleeding, Dyspnea on exertion Chest pain Qualifiers: Chest pain type: unspecified Qualified Code(s): R07.9 - Chest pain, unspecified Condition: Stable Disposition: HOME, SELF-CARE Instructions: Vaginal Bleeding ([facility]), Chest Pain of Unclear Cause ([facility]) Additional Instructions: Your hemoglobin was 11 today. No clear cause was found for your chest pain or shortness of breath. Please follow-up closely with your primary care provider as well as your [facility]. Return to the emergency department for worsening or new concerning symptoms of any sort. Referrals: [facility] [Primary [facility]] - Follow up as needed
[2020-03-09 19:38] VITALS: BP 123/71
== END 2020-03-09 19:46 | disposition home or self-care (01) ==
LOC: ER 14:36
DX: N93.8 Other specified abnormal uterine and vaginal bleeding (principal); R07.9 Chest pain, unspecified; R53.1 Weakness; R06.00 Dyspnea, unspecified; I10 Essential (primary) hypertension; Z98.51 Tubal ligation status
CPT/HCPCS: 93005; 99285; 96360; 86900; 86901; 36415; 86850; 85025; 81025; 80053; 81001; 84484; 71045; 76830; 93010; J7030